=== PATIENT | male | born 1965 | race Caucasian/White ===

== ENCOUNTER 2019-11-04 19:26 | Emergency (ER) | payer OTHER ==
[~2019-11-04] VITALS: Ht 170.2 cm; Wt 85.7 kg
[2019-11-04 19:39] VITALS: BP 134/92
--- NOTE | 2019-11-04 19:42 | NUR ---
PT AMBULATED TO LOBBY TO A/W BED
--- NOTE | 2019-11-04 19:57 | NUR ---
PT TAKEN TO BED 3
[2019-11-04] MEDS ORDERED: KETOROLAC 60 MG/2 ML VIAL IM ONE (20:10)
--- NOTE | 2019-11-04 20:27 | NUR ---
PT RETURN FROM XRAY
--- NOTE | 2019-11-04 20:44 | NUR ---
PT HAVING MID BACK PAIN X 4 MONTHS WITH INCREASING INTENSITY OVER LAST WEEK. DENIES ANY PRIOR INJURY. AMBULATES WITH STEADY, DENIES NUMBNESS OR TINGLING TO EXTREMITIES. NO PAIN WITH URINATION. BED IN LOWEST POSITION AND SIDERAIL UP X 1 MKA NO MED HX
[2019-11-04 20:55] VITALS: BP 134/92
== END 2019-11-04 20:56 | disposition home or self-care (01) ==
LOC: MED 19:26
DX: S29.012A Strain of muscle and tendon of back wall of thorax, initial encounter (principal); X58.XXXA Exposure to other specified factors, initial encounter; Y93.89 Activity, other specified; Y92.89 Other specified places as the place of occurrence of the external cause; Y99.8 Other external cause status
CPT/HCPCS: 72072; 96372; 99283; J1885

== ENCOUNTER 2021-06-03 17:32 | Emergency (ER) | payer OTHER ==
[~2021-06-03] VITALS: Ht 170.2 cm; Wt 83.9 kg
[2021-06-03 17:33] VITALS: BP 159/105
--- NOTE | 2021-06-03 17:40 | NUR ---
PT ambulated to bed 01.
--- NOTE | 2021-06-03 17:55 | NUR ---
ALLA Pollock is evaluating pt at bedside
--- NOTE | 2021-06-03 17:57 | NUR ---
Note undone in EDM - 06/03/21 at 1802 by [email or web address] 56 Y/O FEMAL PATIENT PRESENTS TO ED WITH C/O LOWER LEFT ABDOMINAL PAIN X 1 DAY. PT STATES N/V, DENIES DIARRHEA; LAST BOWEL MOVEMENT WAS TODAY. ABD IS TENDER TO PALPATION. SKIN IS PINK/WARM/DRY; AAOX4 WITH EVEN AND STEADY GAIT; PT DENIES ANY FEVER, CP, SOB, OR COUGH AT THIS TIME; PATIENT STATES PAIN OF 8/10 AT THIS TIME; VSS; PATIENT POSITIONED FOR COMFORT; HOB ELEVATED; BEDRAILS UP X1; BED DOWN. ER MD MADE AWARE OF PT STATUS. PMEDHX: DM, HTN, HIGH CHOLESTEROL, ACID REFLUX NKDA
[2021-06-03] MEDS ORDERED: KETOROLAC 30 MG/ML VIAL IM ONE (18:00)
[2021-06-03] MEDS ORDERED: CYCLOBENZAPRINE 10 MG TAB PO ONE (18:00)
--- NOTE | 2021-06-03 18:00 | NUR ---
56 y/o M c/o frontal and occipital headache x 1 day. Patient A&Ox4, ambulatory, reports episode of headache since yesterday self resolved with rest. Pt states at 1300 today, straining neck while painting a ceiling. pt states 10/10, crushing/intermittent, radiating to frontal region. Pt also reports neck pain and blurry vision while driving. Denies head trauma/injury, fall, chest pain, dizziness, hearing loss. States Tylenol and Excedrin without relief to symptoms. Bed locked in lowest position, side rails x 1. pmh: hld meds: unrecalled nka
--- NOTE | 2021-06-03 18:32 | NUR ---
PATIENT STATED THAT PAIN IS A 7/10, FEELING MUCH BETTER.
[2021-06-03] MEDS ORDERED: NAPR-54 PO (18:48)
[2021-06-03] MEDS ORDERED: CYCL-711 PO (18:48)
--- NOTE | 2021-06-03 19:01 | NUR ---
Patient discharged with v/s stable. Written and verbal after care instructions given on Occipital Neuralgia/ muscle strain and explained. Patient alert, oriented and verbalized understanding of instructions. Ambulatory with steady gait. All questions addressed prior to discharge. ID band removed. Patient advised to follow up with PMD. Rx of Flexeril and Naprosyn given. Patient
[2021-06-03 19:02] VITALS: BP 126/78
== END 2021-06-03 19:02 | disposition home or self-care (01) ==
LOC: MED 17:32
DX: T14.8XXA Other injury of unspecified body region, initial encounter (principal); R51.9 Headache, unspecified; E78.5 Hyperlipidemia, unspecified; Z79.899 Other long term (current) drug therapy; X58.XXXA Exposure to other specified factors, initial encounter; Y93.89 Activity, other specified; Y92.89 Other specified places as the place of occurrence of the external cause; Y99.8 Other external cause status
CPT/HCPCS: 96372; 99283; J1885

== ENCOUNTER 2022-08-10 22:32 | Emergency (ER) | payer OTHER ==
[~2022-08-10] VITALS: Ht 170.2 cm; Wt 83.0 kg
[~2022-08-10 22:32] MED LIST: CYCL-711 PO; NAPR-54 PO
[2022-08-10 22:44] VITALS: BP 136/94
--- NOTE | 2022-08-10 23:58 | NUR ---
ASSUMED CARE , PT HERE FOR EVALUATION FOR LEFT EYE PIN , NO KNOWN TRAUMA, STS IT FEELS LIKE THERRES DUST IN MY EYE.
[2022-08-11] MEDS ORDERED: FLUORESCEIN OPTH STRIP 1 MG ONE (00:16)
[2022-08-11] MEDS ORDERED: TETRACAINE HCL/PF 0.5% OPTH 4 ML BTL ONE (00:17)
--- NOTE | 2022-08-11 00:17 | NUR ---
DR RICHARDSON AT BEDSIDE
[2022-08-11] MEDS ORDERED: TOBR5SOL38 LEFT EYE (00:32)
[2022-08-11] MEDS ORDERED: NAPR-54 PO (00:32)
--- NOTE | 2022-08-11 00:40 | NUR ---
Patient discharged with v/s stable. Written and verbal after care instructions given and explained. Patient verbalized understanding. Ambulatory with steady gait. All questions addressed prior to discharge. Advised to follow up with PMD.
== END 2022-08-11 00:40 | disposition home or self-care (01) ==
LOC: MED 22:32
DX: H00.014 Hordeolum externum left upper eyelid (principal); Z79.899 Other long term (current) drug therapy; Z79.1 Long term (current) use of non-steroidal anti-inflammatories (NSAID); Z79.2 Long term (current) use of antibiotics
CPT/HCPCS: 99283